=== PATIENT | female | born 1960 | race Caucasian/White ===

== ENCOUNTER 2020-10-05 10:16 | Outpatient (CLI) | payer BC | END 2020-10-05 10:17 | disposition home or self-care (01) | LOC: CSHULT 10:16 | PROVIDERS: ATTEND Internal Medicine Gastroenterology | DX: K21.9 Gastro-esophageal reflux disease without esophagitis (principal); R10.13 Epigastric pain; K58.2 Mixed irritable bowel syndrome | CPT/HCPCS: 76705 ==